=== PATIENT | female | born 1955 | race Caucasian/White ===

== ENCOUNTER 2016-11-22 21:04 | Emergency (ER) | payer OTHER ==
[2016-11-22 21:15] VITALS: BP 136/60; PULSE 88; RESP 20; TEMP 98.6
[2016-11-22] MEDS ORDERED: DIPH,PERTUS(ACELL)TETVAC-LF 0.5 ML VIAL IM ONE (21:35)
--- NOTE | 2016-11-22 21:49 | ED ---
Wound/Laceration HPI - General Chief Complaint: Wound/Laceration Stated Complaint: R Hand Lac Time Seen by Provider: 11/22/16 21:24 Source: patient, RN notes reviewed Mode of arrival: ambulatory Limitations: no limitations - History of Present Illness Initial Comments: Patient is a 61-year-old female presents to the emergency room for evaluation of right hand laceration. Patient does have a history of dementia. Patient states that she was reaching under the car to grab one of her cats and is not sure if she got bitten, scratched or injured her hand on the bottom of the car. Patient states that her cat is up-to-date on all of its immunizations. Patient denies any numbness or tingling in her fingers. Patient denies taking blood thinners. Patient is not up-to-date on her tetanus vaccine. Patient denies any other injuries during incident. Patient's is present with patient and states he did not witness the incident happen. - Related Data Previous Rx's Medication Instructions Recorded Amoxicillin/Potassium Clav 1 each PO Q12HR #20 tab 11/22/16 [Augmentin 875-125 Tablet] Allergies Allergy/AdvReac Type Severity Reaction Status Date / Time meperidine [From Demerol] AdvReac Nausea & Verified 11/22/16 21:15 Vomiting Review of Systems ROS Statement: Those systems with pertinent positive or pertinent negative responses have been documented in the HPI. ROS Other: All systems not noted in ROS Statement are negative. Past Medical History Additional Past Medical History / Comment(s): alzheimer's, multiple sclerosis, History of Any Multi-Drug Resistant Organisms: None Reported Past Surgical History: No Surgical Hx Reported Past Psychological History: No Psychological Hx Reported Smoking Status: Never smoker Past Alcohol Use History: Occasional Past Drug Use History: None Reported General Exam - General Exam Comments Initial Comments: sitting in exam room, no acute distress. Limitations: no limitations General appearance: alert, in no apparent distress Head exam: Present: atraumatic, normocephalic, normal inspection Eye exam: Present: normal appearance ENT exam: Present: normal exam Neck exam: Present: normal inspection Respiratory exam: Absent: respiratory distress Right Hand Wrist exam: Present: full ROM, tenderness, laceration (2cm laceration over the dorsal hand, small puncture wound over the dorsal hand on the first metacarpal area). Absent: normal inspection Neuro motor exam: Present: wrist extension intact, thumb opposition intact, thumb IP flexion intact, thumb adduction intact, fingers 2-5 abduction intact Vascular: Present: normal capillary refill (capillary refill less than 2 seconds ), radial pulse (2+), ulnar pulse (2+) Back exam: Present: normal inspection Neurological exam: Present: alert, oriented X3, CN II-XII intact Psychiatric exam: Present: normal affect, normal mood Skin exam: Present: warm, dry. Absent: rash Course Vital Signs 11/22/16 21:09 Temperature 98.6 F Pulse Rate 88 Respiratory 20 Rate Blood Pressure 136/60 O2 Sat by Pulse 96 Oximetry Procedures - Laceration Laceration #1 Consent Obtained: verbal consent Indication: laceration Site: hand (right dorsal hand) Size (cm): 2 Description: linear Depth: simple, single layer Anesthetic Used: lidocaine 1% Anesthesia Technique: local infiltration Amount (mls): 2 Pre-repair: wound explored, irrigated extensively Type of Sutures: nylon Size of Sutures: 6-0 Number of Sutures: 3 Technique: simple, interrupted Patient Tolerated Procedure: well, no complications Medical Decision Making - Medical Decision Making Patient is 61-year-old female presents to the emergency room for evaluation of right hand laceration. Patient does have a history of dementia and is not sure if she was bit by her cat or if she scratched the top of her hand on the bottom of the car while trying to get her cat. Patient's is present with patient and did not witness the incident happen. Will prophylactically treat patient for possible laceration from the cat bite. Cat is up-to-date on all of its immunizations. Laceration was repaired with loosely tied sutures. Patient was updated on her tetanus vaccine. Patient will be placed on Augmentin. Discussed with patient and to watch out for signs of infection in the suture area. Patient's states he understands everything that was discussed with him. Return parameters discussed. Disposition Clinical Impression: Hand laceration Disposition: HOME SELF-CARE Condition: Good Instructions: Animal Bite (ED), Care For Your Stitches (ED), Laceration (ED) Additional Instructions: Taking antibiotic as directed. Take Tylenol or Motrin as needed for pain. Do not soak suture area in water. Clean suture area with a damp cloth. Please return in 7-10 days for suture removal. Please follow up with primary care provider in 1-2 days. If any new symptom arises, symptoms worsen, return to ER as soon as possible. Prescriptions: Amoxicillin/Potassium Clav [Augmentin 875-125 Tablet] 1 each PO Q12HR #20 tab Referrals: Sherly Mcnulty MD [Primary Care Provider] - 1-2 days Time of Disposition: 22:35
[2016-11-22] MEDS ORDERED: AMOXIC-POT CLAV 875-125MG 1 EACH TAB PO STA (22:34)
== END 2016-11-22 22:43 | disposition home or self-care (01) ==
LOC: EC 21:04
DX: S61.411A Laceration without foreign body of right hand, initial encounter (principal); Z23 Encounter for immunization; Z88.5 Allergy status to narcotic agent; X58.XXXA Exposure to other specified factors, initial encounter; Y93.89 Activity, other specified
CPT/HCPCS: 12001; 90471; 90715; 99282

== ENCOUNTER 2016-11-23 18:25 | Emergency (ER) | payer OTHER ==
[2016-11-23 18:46] VITALS: RESP 18
[2016-11-23] MEDS ORDERED: AMPICILLIN-SULBACTAM 3 GM in SODIUM CHLORIDE 0.9% 100 ML IVPB STA (19:03)
--- NOTE | 2016-11-23 19:08 | ED ---
General Adult HPI - General Chief complaint: Skin/Abscess/Foreign Body Stated complaint: INFECTION AT SUTURE SITE RT HAND Time Seen by Provider: 11/23/16 18:54 Source: patient Mode of arrival: ambulatory Limitations: no limitations - History of Present Illness Initial comments: This 61-year-old white female presents with her with a complaint of a cat scratch to her right hand. This apparently happened yesterday. They initially thought it might of been a Bite but it is likely more a Scratch. The patient is demented and cannot give any significant history herself and therefore history is obtained per the . She was scratched in the dorsal aspect of the right hand. She was seen in our emergency department and had several stitches placed and also received Augmentin well here and a prescription for Augmentin. It was worse this morning they followed up with her primary physician and received a injection of Rocephin. They jessica an outline of where the cellulitis/redness and it and now it has expanded past that area. They present for further evaluation in regard to worsening cellulitis and apparent failure of outpatient treatment. It is caused her some mild pain. There hasn't been any fevers. The pain seems worse with any movement. No other complaints or modifying factors. - Related Data Home Medications Medication Instructions Recorded Confirmed Amoxicillin/Potassium Clav 1 tab PO Q12HR 11/23/16 11/23/16 [Augmentin 875-125 Tablet] Citalopram Hydrobromide [CeleXA] 20 mg PO DAILY 11/23/16 11/23/16 Multivitamins, Thera [Multivitamin 1 tab PO DAILY 11/23/16 11/23/16 (formulary)] Previous Rx's Medication Instructions Recorded Sulfamethox-Tmp 800-160Mg [Bactrim 1 tab PO Q12HR #20 tab 11/23/16 DS 800-160 mg] Allergies Allergy/AdvReac Type Severity Reaction Status Date / Time meperidine [From Demerol] AdvReac Nausea & Verified 11/23/16 20:03 Vomiting Review of Systems ROS Statement: Those systems with pertinent positive or pertinent negative responses have been documented in the HPI. ROS Other: All systems not noted in ROS Statement are negative. Past Medical History Additional Past Medical History / Comment(s): alzheimer's, multiple sclerosis, History of Any Multi-Drug Resistant Organisms: None Reported Past Surgical History: No Surgical Hx Reported Past Psychological History: No Psychological Hx Reported Smoking Status: Never smoker Past Alcohol Use History: Occasional Past Drug Use History: None Reported General Exam - General Exam Comments Initial Comments: GENERAL: The patient is well nourished and well hydrated. VITAL SIGNS: Heart rate, blood pressure, respiratory rate reviewed as recorded in nurse's notes. EYES: Pupils are round and reactive. Extraocular movements are intact. No conjunctival / lid redness or swelling. ENT: No external evidence of injury, swelling, or ecchymosis. Airway is patent. Throat is clear. NECK: Nontender. No swelling or evidence of injury. No subcutaneous emphysema. Trachea is midline. No thyroid mass. HEART: Regular rate and rhythm. Good peripheral pulses. LUNGS/CHEST: Breath sounds clear and equal bilaterally. No rales, rhonchi, or wheezes. No ecchymosis, subcutaneous emphysema, or tenderness. ABDOMEN: Abdomen soft without tenderness. No palpable masses or organomegaly. No peritoneal signs. No abdominal wall swelling or ecchymosis. EXTREMITIES: There is a well-healing laceration noted to the dorsal aspect of the right hand. There were several sutures in place. There is no drainage. There is some associated tenderness noted to the dorsal aspect of the right hand. Normal muscle tone and function. No thoracolumbar tenderness. There is excellent range of motion of the hands without any difficulty. Strength is intact. NEUROLOGIC: Sensation is grossly intact. Cranial nerve exam reveals face is symmetrical, tongue is midline, speech is clear. SKIN: There is erythema noted to the dorsal aspect of the right hand which extends into the fingers. PSYCHIATRIC: Patient appears to be severely demented. Limitations: no limitations Course Vital Signs 11/23/16 11/23/16 18:43 20:29 Temperature 98.3 F Pulse Rate 87 77 Respiratory 18 18 Rate Blood Pressure 120/57 132/79 O2 Sat by Pulse 100 100 Oximetry Medical Decision Making - Medical Decision Making The patient was seen and examined. All diagnostics were reviewed. Appears that she does have a cellulitis associated with a cat scratch to her right hand. IV antibiotics are initiated with Unasyn. Laboratory is reviewed. The labs were all essentially within normal limits except for anemia. He has been relates that he thinks that she has a degree of chronic anemia. They were offered admission to the hospital for further IV antibiotics and it is felt as though this would be in her best interest. They refused admission. Therefore, it is felt as though she should have very close follow-up with either her primary doctor or back to the emergency department. Bactrim will be added as well. They understand and agree and she leaves in no distress. - Lab Data Result diagrams: 11/23/16 19:15 11/23/16 19:15 Lab Results 11/23/16 11/23/16 Range/Units 19:15 19:15 WBC 8.7 (3.8-10.6) k/uL RBC 3.40 L (3.80-5.40) m/uL Hgb 9.9 L (11.4-16.0) gm/dL Hct 31.4 L (34.0-46.0) % MCV 92.3 (80.0-100.0) fL MCH 29.2 (25.0-35.0) pg MCHC 31.7 (31.0-37.0) g/dL RDW 15.0 (11.5-15.5) % Plt Count 288 (150-450) k/uL Neutrophils % 66 % Lymphocytes % 19 % Monocytes % 11 % Eosinophils % 1 % Basophils % 0 % Neutrophils # 5.7 (1.3-7.7) k/uL Lymphocytes # 1.7 (1.0-4.8) k/uL Monocytes # 0.9 (0-1.0) k/uL Eosinophils # 0.1 (0-0.7) k/uL Basophils # 0.0 (0-0.2) k/uL Sodium 137 (137-145) mmol/L Potassium 4.9 (3.5-5.1) mmol/L Chloride 103 (98-107) mmol/L Carbon Dioxide 25 (22-30) mmol/L Anion Gap 9 mmol/L BUN 14 (7-17) mg/dL Creatinine 0.69 (0.52-1.04) mg/dL Est GFR (MDRD) Af Amer >60 (>60 ml/min/1.73 sqM) Est GFR (MDRD) Non-Af >60 (>60 ml/min/1.73 sqM) Glucose 96 (74-99) mg/dL Calcium 9.0 (8.4-10.2) mg/dL Disposition Clinical Impression: Hand laceration, Cellulitis of hand, Failure of outpatient treatment, Cat scratch, Dementia, Anemia Disposition: HOME SELF-CARE Condition: Good Instructions: Cellulitis (ED), Wound Infection (ED), Care For Your Stitches (ED ) Prescriptions: Sulfamethox-Tmp 800-160Mg [Bactrim DS 800-160 mg] 1 tab PO Q12HR #20 tab Referrals: Sherly Mcnulty MD [Primary Care Provider] - 1-2 days Time of Disposition: 20:42
[2016-11-23 19:38] LABS: Basophils % (A) 0 %; CH 29.3; Eosinophils # (A) 0.1 k/uL (0-0.7); Eosinophils % (A) 1 %; HCT 31.4 % (34.0-46.0); HGB 9.9 gm/dL (11.4-16.0); Luc # (Auto) 0.26; Luc % (Auto) 3; Lymphocytes # (A) 1.7 k/uL (1.0-4.8); Lymphocytes % (A) 19 %; MCH 29.2 pg (25.0-35.0); MCHC 31.7 g/dL (31.0-37.0); MCV 92.3 fL (80.0-100.0); Mean Platelet Volume 7.2; Monocytes # (A) 0.9 k/uL (0-1.0); Monocytes % (A) 11 %; Neutrophils # (A) 5.7 k/uL (1.3-7.7); Neutrophils % (A) 66 %; WBC 8.7 k/uL (3.8-10.6); WBC (Perox) 8.82
[2016-11-23 19:50] LABS: Anion Gap 9 mmol/L; Blood Urea Nitrogen 14 mg/dL (7-17); Carbon Dioxide 25 mmol/L (22-30); Chloride 103 mmol/L (98-107); Glucose 96 mg/dL (74-99); Non-African American GFR(MDRD) >60 (>60 ml/min/1.73 sqM); Potassium 4.9 mmol/L (3.5-5.1); Sodium 137 mmol/L (137-145)
[2016-11-23 20:34] VITALS: BP 132/79; PULSE 77
[2016-11-23 20:56] VITALS: TEMP 99
== END 2016-11-23 20:56 | disposition home or self-care (01) ==
LOC: EC 18:25
DX: L03.113 Cellulitis of right upper limb (principal); S61.411D Laceration without foreign body of right hand, subsequent encounter; F03.90 Unspecified dementia, unspecified severity, without behavioral disturbance, psychotic disturbance, mood disturbance, and anxiety; D64.9 Anemia, unspecified; Z79.899 Other long term (current) drug therapy; Z88.5 Allergy status to narcotic agent; W55.03XA Scratched by cat, initial encounter
CPT/HCPCS: 99283; 96365; 36415; 80048; 85025; 87040; J0295

== ENCOUNTER 2016-12-20 13:51 | Emergency (ER) | payer OTHER ==
[2016-12-20 13:59] VITALS: BP 117/53; PULSE 79; RESP 17; TEMP 98.2
--- NOTE | 2016-12-20 14:13 | ED ---
General Adult HPI - General Chief complaint: Extremity Injury, Lower Stated complaint: Toe Pain Time Seen by Provider: 12/20/16 14:03 Source: patient, RN notes reviewed Mode of arrival: ambulatory Limitations: no limitations - History of Present Illness Initial comments: Patient 61-year-old female who presents emergency room today with a chief complaint of left great toe pain. Does admit that cut the nails few days ago and thinks that maybe O2 short causing possible ingrown toenail. States concerned about the redness and possible infection. Denies any other complaint associated symptoms. Patient denies any recent fever, chills, shortness of breath, chest pain, back pain, abdominal pain, nausea or vomiting, numbness or tingling, dysuria or hematuria, constipation or diarrhea, headaches or visual changes, or any other complaints. - Related Data Home Medications Medication Instructions Recorded Confirmed Amoxicillin/Potassium Clav 1 tab PO Q12HR 11/23/16 11/23/16 [Augmentin 875-125 Tablet] Citalopram Hydrobromide [CeleXA] 20 mg PO DAILY 11/23/16 11/23/16 Multivitamins, Thera [Multivitamin 1 tab PO DAILY 11/23/16 11/23/16 (formulary)] Previous Rx's Medication Instructions Recorded Sulfamethox-Tmp 800-160Mg [Bactrim 1 tab PO Q12HR #20 tab 11/23/16 DS 800-160 mg] Cephalexin [Keflex] 500 mg PO Q12HR 7 Days 12/20/16 Allergies Allergy/AdvReac Type Severity Reaction Status Date / Time meperidine [From Demerol] AdvReac Nausea & Verified 11/23/16 20:03 Vomiting Review of Systems ROS Statement: Those systems with pertinent positive or pertinent negative responses have been documented in the HPI. ROS Other: All systems not noted in ROS Statement are negative. Past Medical History Additional Past Medical History / Comment(s): alzheimer's, multiple sclerosis, History of Any Multi-Drug Resistant Organisms: None Reported Past Surgical History: No Surgical Hx Reported Past Psychological History: No Psychological Hx Reported Smoking Status: Never smoker Past Alcohol Use History: Occasional Past Drug Use History: None Reported General Exam - General Exam Comments Initial Comments: General: The patient is awake and alert, in no distress, and does not appear acutely ill. Neck: The neck is supple, there is no tenderness or JVD. Cardiovascular: There is a regular rate and rhythm. No murmur, rub or gallop is appreciated. Respiratory: Lungs are clear to auscultation, respirations are non-labored, breath sounds are equal. No wheezes, stridor, rales, or rhonchi. Musculoskeletal: Full range of motion. Sensation intact. Pulses equal bilaterally 2+. Strength 5/5. Neurological: A&O x 3. CN II-XII intact, There are no obvious motor or sensory deficits. Coordination appears grossly intact. Speech is normal. Skin: Mild redness to the lateral aspect of the left great toe. No JVD streaking. No fluctuance. Psychiatric: Normal mood and affect. Limitations: no limitations Course Vital Signs 12/20/16 13:56 Temperature 98.2 F Pulse Rate 79 Respiratory 17 Rate Blood Pressure 117/53 O2 Sat by Pulse 98 Oximetry Medical Decision Making - Medical Decision Making Patient advised warm soaks use topical antibiotics if the area soft. Advised to use oral antibiotic for any infection. Advised return if symptoms increase or worsen. Disposition Clinical Impression: Ingrown left big toenail Disposition: HOME SELF-CARE Condition: Good Instructions: Ingrown Nail (ED) Additional Instructions: Please use warm soaks and topical antibiotic as discussed. Please antibiotic as prescribed. Please follow-up with family doctor in the next 3-5 days of symptoms have not improved. Please return to emergency room if the symptoms increase or worsen or for any other concerns. Prescriptions: Cephalexin [Keflex] 500 mg PO Q12HR 7 Days Referrals: Sherly Mcnulty MD [Primary Care Provider] - 1-2 days Time of Disposition: 14:12
== END 2016-12-20 14:23 | disposition home or self-care (01) ==
LOC: EC 13:51
DX: L60.0 Ingrowing nail (principal); Z79.899 Other long term (current) drug therapy; Z88.5 Allergy status to narcotic agent
CPT/HCPCS: 99283

== ENCOUNTER 2017-07-03 02:27 | Emergency (ER) | payer SELFPAY ==
[2017-07-03 03:27] LABS: Appearance,Urine Clear (Clear); Bilirubin,Urine Negative (Negative); Blood,Urine Negative (Negative); Color,Urine Light Yellow; Glucose,Urine (UA) Negative (Negative); Ketones,Urine Negative (Negative); Leukocyte Esterase,Urine Negative (Negative); Nitrite,Urine Negative (Negative); PH, Urine 5.5 (5.0-8.0); Protein,Urine Negative (Negative); Specific Gravity,Urine 1.005 (1.001-1.035); Urobilinogen,Urine <2.0 mg/dL (<2.0)
[2017-07-03 03:35] LABS: Anisocytosis Slight; Basophils % (A) 0 %; Eosinophils # (A) 0.1 k/uL (0-0.7); Eosinophils % (A) 1 %; HCT 25.4 % (34.0-46.0); HGB 7.8 gm/dL (11.4-16.0); Hypochromasia Marked; Lymphocytes # (A) 1.9 k/uL (1.0-4.8); Lymphocytes % (A) 31 %; MCH 25.4 pg (25.0-35.0); MCHC 30.7 g/dL (31.0-37.0); MCV 82.8 fL (80.0-100.0); Mean Platelet Volume 7.9; Monocytes # (A) 0.7 k/uL (0-1.0); Monocytes % (A) 11 %; Neutrophils # (A) 3.3 k/uL (1.3-7.7); Neutrophils % (A) 54 %; Platelet Count 375 k/uL (150-450); RBC 3.06 m/uL (3.80-5.40); RDW 16.3 % (11.5-15.5); WBC 6.1 k/uL (3.8-10.6)
[2017-07-03 03:40] LABS: ALT 43 U/L (9-52); AST 35 U/L (14-36); Albumin 3.3 g/dL (3.5-5.0); Alkaline Phosphatase 97 U/L (38-126); Amylase 37 U/L (30-110); Anion Gap 10 mmol/L; Blood Urea Nitrogen 8 mg/dL (7-17); Calcium 8.5 mg/dL (8.4-10.2); Carbon Dioxide 23 mmol/L (22-30); Chloride 107 mmol/L (98-107); Glucose 103 mg/dL (74-99); Lipase 55 U/L (23-300); Potassium 3.6 mmol/L (3.5-5.1); Sodium 140 mmol/L (137-145); Total Bilirubin 0.2 mg/dL (0.2-1.3)
--- NOTE | 2017-07-03 03:47 | XR ---
EXAM: XR Abdomen, 1 View CLINICAL HISTORY: Reason: abdominal pain TECHNIQUE: Frontal supine view of the abdomen/pelvis. COMPARISON: No relevant prior studies available. FINDINGS: Gastrointestinal tract: Unremarkable. No dilation. Bones/joints: Unremarkable. IMPRESSION: Normal abdominal x-ray.
[2017-07-03] MEDS ORDERED: RX INFO: IV CONTRAST WAS GIVEN 1 EACH MISC MISCELLANE PRN (04:24)
--- NOTE | 2017-07-03 05:07 | CT ---
EXAM: CT Abdomen and Pelvis With Intravenous Contrast CLINICAL HISTORY: Reason: Pain TECHNIQUE: Axial computed tomography images of the abdomen and pelvis with intravenous contrast. DLP is 351.30 mGy-cm. This CT exam was performed using one or more of the following dose reduction techniques: automated exposure control, adjustment of the mA and/or kV according to patient size, and/or use of iterative reconstruction technique. COMPARISON: No relevant prior studies available. FINDINGS: Lower thorax: No acute findings. ABDOMEN: Liver: Unremarkable. No mass. Gallbladder and bile ducts: Unremarkable. No calcified stones. No ductal dilation. Pancreas: Unremarkable. No mass. No ductal dilation. Spleen: Unremarkable. No splenomegaly. Adrenals: Unremarkable. No mass. Kidneys and ureters: Unremarkable. No solid mass. No hydronephrosis. Stomach and bowel: Unremarkable. No obstruction. No mucosal thickening. Appendix: No findings to suggest acute appendicitis. PELVIS: Bladder: Unremarkable. No mass. Reproductive: Unremarkable as visualized. ABDOMEN and PELVIS: Intraperitoneal space: Unremarkable. No free air. No significant fluid collection. Bones/joints: No acute fracture. No dislocation. Soft tissues: Unremarkable. Vasculature: Unremarkable. No abdominal aortic aneurysm. Lymph nodes: Unremarkable. No enlarged lymph nodes. IMPRESSION: Normal abdomen and pelvis CT.
[2017-07-03] MEDS ORDERED: MAG HYDROX/AL HYDROX/SIMETH 30 ML CUP PO STA (05:26)
--- NOTE | 2017-07-03 05:28 | ED ---
Abdominal Pain HPI - General Chief Complaint: Abdominal Pain Stated Complaint: ABD PAIN Time Seen by Provider: 07/03/17 03:00 Source: patient, family Mode of arrival: ambulatory Limitations: no limitations - History of Present Illness Initial Comments: 62-year-old female patient presents to the emergency department today with for evaluation of generalized abdominal pain. Patient does have a history of dementia and is unable to provide any significant history. is present and supplies majority of history. He states that patient began complaining of abdominal pain a couple hours after eating dinner. He denies any vomiting complaints of nausea, diarrhea, or constipation. States she's been having normal bowel movements. He denies any hematochezia or melena. States that she is a vegetarian and did have chili for dinner that contained a lot of beans, he believes her pain may be related to excess gas. They deny any fever or chills recently. Denies any history of abdominal surgeries or other intra-abdominal processes. She denies any hematuria, dysuria, urinary frequency , urinary urgency. Patient denies any recent rash, shortness breath, chest pain , back pain, numbness, tingling, dizziness, weakness, hematuria, dysuria, urinary urgency, urinary frequency, headache, visual changes, or any other complaints. - Related Data Home Medications Medication Instructions Recorded Confirmed Citalopram Hydrobromide [CeleXA] 20 mg PO DAILY 11/23/16 07/03/17 Multivitamins, Thera [Multivitamin 1 tab PO DAILY 11/23/16 07/03/17 (formulary)] Donepezil HCl [Aricept ODT] 30 mg PO DAILY 12/20/16 07/03/17 Previous Rx's Medication Instructions Recorded Ferrous Sulfate [Feosol] 325 mg PO DAILY #30 tab 07/03/17 Allergies Allergy/AdvReac Type Severity Reaction Status Date / Time meperidine [From Demerol] AdvReac Nausea & Verified 07/03/17 02:42 Vomiting Review of Systems ROS Statement: Those systems with pertinent positive or pertinent negative responses have been documented in the HPI. ROS Other: All systems not noted in ROS Statement are negative. Past Medical History Additional Past Medical History / Comment(s): alzheimer's, multiple sclerosis, History of Any Multi-Drug Resistant Organisms: None Reported Past Surgical History: No Surgical Hx Reported Past Psychological History: No Psychological Hx Reported Smoking Status: Never smoker Past Alcohol Use History: Occasional Past Drug Use History: None Reported General Exam Limitations: no limitations General appearance: alert, in no apparent distress, other (This is a well- developed, well-nourished adult female patient in no acute distress. Vital signs upon presentation are temperature 98.8F, pulse 85, respirations 16, blood pressure 119/56, pulse oximetry 97% on room air.) Eye exam: Present: normal appearance, PERRL, EOMI. Absent: scleral icterus, conjunctival injection, periorbital swelling ENT exam: Present: normal exam, normal oropharynx, mucous membranes moist Neck exam: Present: normal inspection. Absent: tenderness, meningismus, lymphadenopathy Respiratory exam: Present: normal lung sounds bilaterally. Absent: respiratory distress, wheezes, rales, rhonchi, stridor Cardiovascular Exam: Present: regular rate, normal rhythm, normal heart sounds. Absent: systolic murmur, diastolic murmur, rubs, gallop, clicks GI/Abdominal exam: Present: soft, tenderness (Left lower quadrant abdominal tenderness), normal bowel sounds. Absent: distended, guarding, rebound, rigid Back exam: Present: normal inspection. Absent: CVA tenderness (R), CVA tenderness (L) Neurological exam: Present: alert, CN II-XII intact. Absent: oriented X3 ( Oriented 1) Psychiatric exam: Present: normal affect, normal mood Skin exam: Present: warm, dry, intact, normal color. Absent: rash Course Vital Signs 07/03/17 07/03/17 02:38 05:57 Temperature 98.8 F 97.8 F Pulse Rate 85 76 Respiratory 16 18 Rate Blood Pressure 119/56 142/62 O2 Sat by Pulse 97 100 Oximetry Medical Decision Making - Medical Decision Making 62-year-old female patient presents to the emergency department today for evaluation of abdominal pain. Physical examination did reveal some left lower quadrant abdominal tenderness. Labs reviewed and did reveal a hemoglobin of 7.8. reports that she has had some low hemoglobins but he is not sure what the numbers have been. They deny any symptoms of fatigue, weakness, or dizziness. Occult blood was negative. We did perform a KUB x-ray which was normal. CT of the abdomen and pelvis was obtained due to her left lower quadrant tenderness this was negative. We will give patient a dose of Mylanta here in the department. She is instructed to follow-up with her primary care physician for further evaluation of both the anemia and the abdominal pain. We will start her on iron. They're instructed to return here immediately for any new, worsening, or concerning symptoms. They verbalize understanding and agree with this plan. - Lab Data Result diagrams: 07/03/17 03:05 07/03/17 03:05 Lab Results 07/03/17 07/03/17 07/03/17 Range/Units 03:05 03:05 03:05 WBC 6.1 (3.8-10.6) k/uL RBC 3.06 L (3.80-5.40) m/uL Hgb 7.8 L (11.4-16.0) gm/dL Hct 25.4 L (34.0-46.0) % MCV 82.8 (80.0-100.0) fL MCH 25.4 (25.0-35.0) pg MCHC 30.7 L (31.0-37.0) g/dL RDW 16.3 H (11.5-15.5) % Plt Count 375 (150-450) k/uL Neutrophils % 54 % Lymphocytes % 31 % Monocytes % 11 % Eosinophils % 1 % Basophils % 0 % Neutrophils # 3.3 (1.3-7.7) k/uL Lymphocytes # 1.9 (1.0-4.8) k/uL Monocytes # 0.7 (0-1.0) k/uL Eosinophils # 0.1 (0-0.7) k/uL Basophils # 0.0 (0-0.2) k/uL Hypochromasia Marked Anisocytosis Slight Sodium 140 (137-145) mmol/L Potassium 3.6 (3.5-5.1) mmol/L Chloride 107 (98-107) mmol/L Carbon Dioxide 23 (22-30) mmol/L Anion Gap 10 mmol/L BUN 8 (7-17) mg/dL Creatinine 0.60 (0.52-1.04) mg/dL Est GFR (MDRD) Af Amer >60 (>60 ml/min/1.73 sqM) Est GFR (MDRD) Non-Af >60 (>60 ml/min/1.73 sqM) Glucose 103 H (74-99) mg/dL Calcium 8.5 (8.4-10.2) mg/dL Total Bilirubin 0.2 (0.2-1.3) mg/dL AST 35 (14-36) U/L ALT 43 (9-52) U/L Alkaline Phosphatase 97 (38-126) U/L Total Protein 6.0 L (6.3-8.2) g/dL Albumin 3.3 L (3.5-5.0) g/dL Amylase 37 (30-110) U/L Lipase 55 (23-300) U/L Urine Color Light Yellow Urine Appearance Clear (Clear) Urine pH 5.5 (5.0-8.0) Ur Specific [place] 1.005 (1.001-1.035) Urine Protein Negative (Negative) Urine Glucose (UA) Negative (Negative) Urine Ketones Negative (Negative) Urine Blood Negative (Negative) Urine Nitrite Negative (Negative) Urine Bilirubin Negative (Negative) Urine Urobilinogen <2.0 (<2.0) mg/dL Ur Leukocyte Esterase Negative (Negative) Stool Occult Blood (Negative) 07/03/17 Range/Units 04:21 WBC (3.8-10.6) k/uL RBC (3.80-5.40) m/uL Hgb (11.4-16.0) gm/dL Hct (34.0-46.0) % MCV (80.0-100.0) fL MCH (25.0-35.0) pg MCHC (31.0-37.0) g/dL RDW (11.5-15.5) % Plt Count (150-450) k/uL Neutrophils % % Lymphocytes % % Monocytes % % Eosinophils % % Basophils % % Neutrophils # (1.3-7.7) k/uL Lymphocytes # (1.0-4.8) k/uL Monocytes # (0-1.0) k/uL Eosinophils # (0-0.7) k/uL Basophils # (0-0.2) k/uL Hypochromasia Anisocytosis Sodium (137-145) mmol/L Potassium (3.5-5.1) mmol/L Chloride (98-107) mmol/L Carbon Dioxide (22-30) mmol/L Anion Gap mmol/L BUN (7-17) mg/dL Creatinine (0.52-1.04) mg/dL Est GFR (MDRD) Af Amer (>60 ml/min/1.73 sqM) Est GFR (MDRD) Non-Af (>60 ml/min/1.73 sqM) Glucose (74-99) mg/dL Calcium (8.4-10.2) mg/dL Total Bilirubin (0.2-1.3) mg/dL AST (14-36) U/L ALT (9-52) U/L Alkaline Phosphatase (38-126) U/L Total Protein (6.3-8.2) g/dL Albumin (3.5-5.0) g/dL Amylase (30-110) U/L Lipase (23-300) U/L Urine Color Urine Appearance (Clear) Urine pH (5.0-8.0) Ur Specific [place] (1.001-1.035) Urine Protein (Negative) Urine Glucose (UA) (Negative) Urine Ketones (Negative) Urine Blood (Negative) Urine Nitrite (Negative) Urine Bilirubin (Negative) Urine Urobilinogen (<2.0) mg/dL Ur Leukocyte Esterase (Negative) Stool Occult Blood Negative (Negative) - Radiology Data Radiology results: report reviewed, image reviewed KUB x-ray of the abdomen did show the GI tract is unremarkable no dilation. Bones and joints are unremarkable. Impression by Dr. Callaway shows normal abdominal x-ray. CT of the abdomen and pelvis was obtained with contrast. Report was reviewed in its entirety. Impression by Dr. Callaway shows normal abdomen and pelvis CT. Disposition Clinical Impression: Abdominal pain, Anemia Disposition: HOME SELF-CARE Condition: Good Instructions: Iron Rich Diet (ED), Abdominal Pain (ED), Anemia (ED) Additional Instructions: Take iron supplement as directed. Follow-up with your primary care physician for recheck of your hemoglobin level. Return here immediately for any new, worsening, or concerning symptoms. Prescriptions: Ferrous Sulfate [Feosol] 325 mg PO DAILY #30 tab Referrals: Sherly Mcnulty MD [Primary Care Provider] - 1-2 days Time of Disposition: 05:28
[2017-07-03 06:00] VITALS: BP 142/62; PULSE 76; RESP 18; TEMP 97.8
== END 2017-07-03 06:00 | disposition home or self-care (01) ==
LOC: EC 02:27
DX: D64.9 Anemia, unspecified (principal); R10.84 Generalized abdominal pain; G30.9 Alzheimer's disease, unspecified; F02.80 Dementia in other diseases classified elsewhere, unspecified severity, without behavioral disturbance, psychotic disturbance, mood disturbance, and anxiety; Z79.899 Other long term (current) drug therapy; Z88.5 Allergy status to narcotic agent
CPT/HCPCS: 36415; 80053; 82150; 83690; 85025; 82272; 81003; 74018; 74177; 99284; Q9967

== ENCOUNTER 2017-09-20 05:45 | Inpatient (IN) | payer OTHER ==
[2017-09-20] MEDS ORDERED: LORazepam 1 MG TAB PO STA (06:29)
--- NOTE | 2017-09-20 06:33 | ED ---
General Adult HPI - General Source: family, RN notes reviewed Mode of arrival: wheelchair Limitations: altered mental status <Raj Nascimento - Last Filed: 09/20/17 06:29> <Christian Loo - Last Filed: 09/20/17 10:15> - General Chief complaint: Altered Mental Status Stated complaint: Confusion Time Seen by Provider: 09/20/17 06:14 - History of Present Illness Initial comments: Patient is a pleasantly demented 62-year-old female presenting to the emergency department for agitation. Patient has difficulty providing any history. Patient is appearing agitated at the . Further history is taken from the who states patient has MS and advanced dementia. He states she has progressed rapidly over the past year. Patient has had previous evaluation including MRI and CT and physician evaluation. He states the past few hours she has been more agitated and striking out at him. (Raj Nascimento) - Related Data Home Medications Medication Instructions Recorded Confirmed Citalopram Hydrobromide [CeleXA] 40 mg PO DAILY 11/23/16 09/20/17 Donepezil [Aricept] 10 mg PO BID 09/20/17 09/20/17 Multivit-Min/FA/Lycopen/Lutein 1 tab PO DAILY 09/20/17 09/20/17 [Centrum Silver Tablet] Allergies Allergy/AdvReac Type Severity Reaction Status Date / Time meperidine [From Demerol] AdvReac Nausea & Verified 09/20/17 08:05 Vomiting Review of Systems Limitations: ROS unobtainable due to patients medical condition <Raj Nascimento - Last Filed: 09/20/17 06:29> ROS Other: All systems not noted in ROS Statement are negative. <Christian Loo - Last Filed: 09/20/17 10:15> ROS Statement: Those systems with pertinent positive or pertinent negative responses have been documented in the HPI. Past Medical History Additional Past Medical History / Comment(s): alzheimer's, multiple sclerosis, History of Any Multi-Drug Resistant Organisms: None Reported Past Surgical History: No Surgical Hx Reported Past Psychological History: No Psychological Hx Reported Smoking Status: Never smoker Past Alcohol Use History: Occasional Past Drug Use History: None Reported <Raj Nascimento - Last Filed: 09/20/17 06:29> General Exam Limitations: altered mental status General appearance: alert, in no apparent distress, other (Limited history. Oriented only to first name. Patient does follow commands.) Head exam: Present: atraumatic Eye exam: Present: normal appearance, PERRL, EOMI ENT exam: Present: normal oropharynx Neck exam: Present: normal inspection. Absent: tenderness Respiratory exam: Present: normal lung sounds bilaterally Cardiovascular Exam: Present: regular rate, normal rhythm GI/Abdominal exam: Present: soft. Absent: tenderness Extremities exam: Present: normal inspection Neurological exam: Present: alert, altered, CN II-XII intact. Absent: motor sensory deficit Expanded Neurological exam: Present: protecting the airway Patient oriented to: Present: person. Absent: place, time Cranial nerves: EOM's Intact: Normal Motor strength exam: RUE: 5, LUE: 5, RLE: 5, LLE: 5 Eye Response: (4) open spontaneously Motor Response: (6) obeys commands Verbal Response: (3) inappropriate words Psychiatric exam: Present: other (Patient is with normal mood and affect when originally approached. Patient does ramble and that is incoherent and becomes anxious with that. When patient sees she becomes agitated.) Skin exam: Present: normal color <Raj Nascimento - Last Filed: 09/20/17 06:29> Course <Raj Nascimento - Last Filed: 09/20/17 06:29> <Christian Loo - Last Filed: 09/20/17 10:15> Vital Signs 09/20/17 09/20/17 09/20/17 05:55 06:28 07:00 Temperature 97.3 F L Pulse Rate 89 77 75 Respiratory 18 16 16 Rate Blood Pressure 144/63 125/61 112/56 O2 Sat by Pulse 98 100 100 Oximetry 09/20/17 08:54 Temperature Pulse Rate 85 Respiratory 16 Rate Blood Pressure 124/60 O2 Sat by Pulse 98 Oximetry - Reevaluation(s) Reevaluation #1: 09/20/17 06:31 is interested in having patient given medication to help her relax. He feels if workup otherwise appears normal he is comfortable taking her back home. (Raj Nascimento) Medical Decision Making <Raj Nascimento - Last Filed: 09/20/17 06:29> - Lab Data Result diagrams: 09/20/17 06:41 09/20/17 06:41 - EKG Data -: EKG Interpreted by Pa EKG shows normal: sinus rhythm [place] [address] QRS duration 76 QT since QTC 394/443 low-voltage criteria for LVH nonspecific ST configuration no definite acute elevations or depressions) - Radiology Data Radiology results: report reviewed (View the imaging shows no definite acute changes.), image reviewed <EzeChristian - Last Filed: 09/20/17 10:15> - Medical Decision Making I did discuss findings with the patient and with her . Patient be admitted for evaluation of non-ST elevation myocardial infarction in addition to her dementia and chronic anemia. (Christian Loo) - Lab Data Lab Results 09/20/17 09/20/17 09/20/17 Range/Units 06:37 06:41 06:41 WBC 6.2 (3.8-10.6) k/uL RBC 3.18 L (3.80-5.40) m/uL Hgb 7.8 L (11.4-16.0) gm/dL Hct 25.1 L (34.0-46.0) % MCV 78.9 L (80.0-100.0) fL MCH 24.6 L (25.0-35.0) pg MCHC 31.2 (31.0-37.0) g/dL RDW 17.0 H (11.5-15.5) % Plt Count 348 (150-450) k/uL Neutrophils % 56 % Lymphocytes % 29 % Monocytes % 9 % Eosinophils % 1 % Basophils % 0 % Neutrophils # 3.5 (1.3-7.7) k/uL Lymphocytes # 1.8 (1.0-4.8) k/uL Monocytes # 0.6 (0-1.0) k/uL Eosinophils # 0.1 (0-0.7) k/uL Basophils # 0.0 (0-0.2) k/uL Hypochromasia Slight Anisocytosis Slight Microcytosis Slight PT (9.0-12.0) sec INR (<1.2) APTT (22.0-30.0) sec Sodium (137-145) mmol/L Potassium (3.5-5.1) mmol/L Chloride (98-107) mmol/L Carbon Dioxide (22-30) mmol/L Anion Gap mmol/L BUN (7-17) mg/dL Creatinine (0.52-1.04) mg/dL Est GFR (CKD-EPI)AfAm (>60 ml/min/1.73 sqM) Est GFR (CKD-EPI)NonAf (>60 ml/min/1.73 sqM) Glucose (74-99) mg/dL POC Glucose (mg/dL) 91 (75-99) mg/dL POC Glu Building Insulation Installer ID Isael Brooks Calcium (8.4-10.2) mg/dL Total Bilirubin (0.2-1.3) mg/dL AST (14-36) U/L ALT (9-52) U/L Alkaline Phosphatase (38-126) U/L Total Creatine Kinase 134 (30-135) U/L CK-MB (CK-2) 2.2 (0.0-2.4) ng/mL CK-MB (CK-2) Rel Index 1.6 Troponin I 0.120 H* (0.000-0.034) ng/mL Total Protein (6.3-8.2) g/dL Albumin (3.5-5.0) g/dL Urine Color Urine Appearance (Clear) Urine pH (5.0-8.0) Ur Specific [place] (1.001-1.035) Urine Protein (Negative) Urine Glucose (UA) (Negative) Urine Ketones (Negative) Urine Blood (Negative) Urine Nitrite (Negative) Urine Bilirubin (Negative) Urine Urobilinogen (<2.0) mg/dL Ur Leukocyte Esterase (Negative) Urine RBC (0-5) /hpf Urine WBC (0-5) /hpf Ur Squamous Epith Cells (0-4) /hpf Amorphous Sediment (None) /hpf Urine Bacteria (None) /hpf Hyaline Casts (0-2) /lpf Urine Mucus (None) /hpf Urine Opiates Screen (NotDetected) Ur Oxycodone Screen (NotDetected) Urine Methadone Screen (NotDetected) Ur Propoxyphene Screen (NotDetected) Ur Barbiturates Screen (NotDetected) U Tricyclic Antidepress (NotDetected) Ur Phencyclidine Scrn (NotDetected) Ur Amphetamines Screen (NotDetected) U Methamphetamines Scrn (NotDetected) U Benzodiazepines Scrn (NotDetected) Urine Cocaine Screen (NotDetected) U Marijuana (THC) Screen (NotDetected) 09/20/17 09/20/17 09/20/17 Range/Units 06:41 06:41 06:58 WBC (3.8-10.6) k/uL RBC (3.80-5.40) m/uL Hgb (11.4-16.0) gm/dL Hct (34.0-46.0) % MCV (80.0-100.0) fL MCH (25.0-35.0) pg MCHC (31.0-37.0) g/dL RDW (11.5-15.5) % Plt Count (150-450) k/uL Neutrophils % % Lymphocytes % % Monocytes % % Eosinophils % % Basophils % % Neutrophils # (1.3-7.7) k/uL Lymphocytes # (1.0-4.8) k/uL Monocytes # (0-1.0) k/uL Eosinophils # (0-0.7) k/uL Basophils # (0-0.2) k/uL Hypochromasia Anisocytosis Microcytosis PT 11.3 (9.0-12.0) sec INR 1.2 H (<1.2) APTT 24.0 (22.0-30.0) sec Sodium 143 (137-145) mmol/L Potassium 3.9 (3.5-5.1) mmol/L Chloride 109 H (98-107) mmol/L Carbon Dioxide 20 L (22-30) mmol/L Anion Gap 14 mmol/L BUN 11 (7-17) mg/dL Creatinine 0.52 (0.52-1.04) mg/dL Est GFR (CKD-EPI)AfAm >90 (>60 ml/min/1.73 sqM) Est GFR (CKD-EPI)NonAf >90 (>60 ml/min/1.73 sqM) Glucose 84 (74-99) mg/dL POC Glucose (mg/dL) (75-99) mg/dL POC Glu Building Insulation Installer ID Calcium 8.3 L (8.4-10.2) mg/dL Total Bilirubin 0.3 (0.2-1.3) mg/dL AST 52 H (14-36) U/L ALT 42 (9-52) U/L Alkaline Phosphatase 135 H (38-126) U/L Total Creatine Kinase (30-135) U/L CK-MB (CK-2) (0.0-2.4) ng/mL CK-MB (CK-2) Rel Index Troponin I (0.000-0.034) ng/mL Total Protein 5.8 L (6.3-8.2) g/dL Albumin 3.1 L (3.5-5.0) g/dL Urine Color Yellow Urine Appearance Cloudy H (Clear) Urine pH 5.5 (5.0-8.0) Ur Specific [place] 1.024 (1.001-1.035) Urine Protein Trace H (Negative) Urine Glucose (UA) Negative (Negative) Urine Ketones Negative (Negative) Urine Blood Negative (Negative) Urine Nitrite Negative (Negative) Urine Bilirubin Negative (Negative) Urine Urobilinogen <2.0 (<2.0) mg/dL Ur Leukocyte Esterase Negative (Negative) Urine RBC 1 (0-5) /hpf Urine WBC 3 (0-5) /hpf Ur Squamous Epith Cells <1 (0-4) /hpf Amorphous Sediment Few H (None) /hpf Urine Bacteria Rare H (None) /hpf Hyaline Casts 3 H (0-2) /lpf Urine Mucus Few H (None) /hpf Urine Opiates Screen Not Detected (NotDetected) Ur Oxycodone Screen Not Detected (NotDetected) Urine Methadone Screen Not Detected (NotDetected) Ur Propoxyphene Screen Not Detected (NotDetected) Ur Barbiturates Screen Not Detected (NotDetected) U Tricyclic Antidepress Not Detected (NotDetected) Ur Phencyclidine Scrn Not Detected (NotDetected) Ur Amphetamines Screen Not Detected (NotDetected) U Methamphetamines Scrn Not Detected (NotDetected) U Benzodiazepines Scrn Not Detected (NotDetected) Urine Cocaine Screen Not Detected (NotDetected) U Marijuana (THC) Screen Detected H (NotDetected) Disposition <Raj Nascimento - Last Filed: 09/20/17 06:29> <Christian Loo - Last Filed: 09/20/17 10:15> Clinical Impression: Non-ST elevation myocardial infarction (NSTEMI), Chronic anemia, Dementia Disposition: ADMITTED IP TO THIS [facility] Condition: Stable Referrals: Sherly Mcnulty MD [Primary Care Provider] - 1-2 days
[2017-09-20 06:41] LABS: Glucose,Whole Blood 91 mg/dL (75-99)
[2017-09-20 06:51] LABS: Anisocytosis Slight; Basophils % (A) 0 %; Eosinophils # (A) 0.1 k/uL (0-0.7); Eosinophils % (A) 1 %; HCT 25.1 % (34.0-46.0); HGB 7.8 gm/dL (11.4-16.0); Hypochromasia Slight; Lymphocytes # (A) 1.8 k/uL (1.0-4.8); Lymphocytes % (A) 29 %; MCH 24.6 pg (25.0-35.0); MCHC 31.2 g/dL (31.0-37.0); MCV 78.9 fL (80.0-100.0); Mean Platelet Volume 6.8; Microcytosis Slight; Monocytes # (A) 0.6 k/uL (0-1.0); Monocytes % (A) 9 %; Neutrophils # (A) 3.5 k/uL (1.3-7.7); Neutrophils % (A) 56 %; Platelet Count 348 k/uL (150-450); RBC 3.18 m/uL (3.80-5.40); WBC 6.2 k/uL (3.8-10.6)
[2017-09-20 07:03] LABS: ALT 42 U/L (9-52); AST 52 U/L (14-36); Albumin 3.1 g/dL (3.5-5.0); Alkaline Phosphatase 135 U/L (38-126); Anion Gap 14 mmol/L; Blood Urea Nitrogen 11 mg/dL (7-17); Calcium 8.3 mg/dL (8.4-10.2); Carbon Dioxide 20 mmol/L (22-30); Chloride 109 mmol/L (98-107); Glucose 84 mg/dL (74-99); Potassium 3.9 mmol/L (3.5-5.1); Sodium 143 mmol/L (137-145); Total Bilirubin 0.3 mg/dL (0.2-1.3); Total Protein 5.8 g/dL (6.3-8.2)
[2017-09-20 07:05] LABS: INR 1.2 (<1.2); Prothrombin Time 11.3 sec (9.0-12.0)
[2017-09-20 07:18] LABS: Amphetamine Screen,Urine Not Detected (NotDetected); Barbiturate Screen,Urine Not Detected (NotDetected); Benzodiazepines Screen,Urine Not Detected (NotDetected); Cocaine Screen,Urine Not Detected (NotDetected); Methadone Screen, Urine Not Detected (NotDetected); Opiate Screen,Urine Not Detected (NotDetected); Oxycodone Screen, Urine Not Detected (NotDetected); Phencyclidine Screen,Urine Not Detected (NotDetected); Tricyclic Antidepressant,Urine Not Detected (NotDetected); Urn Cannabinoid Scrn Detected (NotDetected)
[2017-09-20 07:31] LABS: Amorphous Sediment,Urine Few /hpf; Appearance,Urine Cloudy (Clear); Bacteria,Urine Rare /hpf; Bilirubin,Urine Negative (Negative); Blood,Urine Negative (Negative); Color,Urine Yellow; Glucose,Urine (UA) Negative (Negative); Hyaline Casts,Urine 3 /lpf (0-2); Ketones,Urine Negative (Negative); Leukocyte Esterase,Urine Negative (Negative); Mucus,Urine Few /hpf; Nitrite,Urine Negative (Negative); PH, Urine 5.5 (5.0-8.0); Protein,Urine Trace (Negative); RBC,Urine 1 /hpf (0-5); Specific Gravity,Urine 1.024 (1.001-1.035); Squamous Epithelial Cell,Urine <1 /hpf (0-4); Urobilinogen,Urine <2.0 mg/dL (<2.0); WBC,Urine 3 /hpf (0-5)
[2017-09-20 07:32] LABS: Creatine Kinase MB 2.2 ng/mL (0.0-2.4)
[2017-09-20 07:38] LABS: Troponin I 0.12 ng/mL (0.000-0.034)
--- NOTE | 2017-09-20 07:50 | CT ---
EXAMINATION TYPE: CT brain wo con DATE OF EXAM: 09/20/2017 HISTORY: Altered mental status CT DLP: 1225 mGycm. Automated Exposure Control for Dose Reduction was Utilized. TECHNIQUE: CT scan of the head is performed without contrast. COMPARISON: None. FINDINGS: There is no acute intracranial hemorrhage or midline shift identified. There is diffuse v entricular and sulcal prominence consistent with diffuse age-related cerebral atrophy. There is low- attenuation in the periventricular white matter consistent with chronic small vessel ischemic change along the right frontal horn. The globes are intact and the visualized sinuses are clear. Vascular calcification distal internal carotid and vertebral arteries bilaterally is present. IMPRESSION: No acute intracranial hemorrhage or midline shift. There is moderate to severe diffuse age-related cerebral atrophy noted quite pronounced for patient's chronologic age.
--- NOTE | 2017-09-20 08:06 | XR ---
EXAMINATION TYPE: XR chest 2V DATE OF EXAM: 09/20/2017 COMPARISON: NONE HISTORY: Altered mental status and weakness. TECHNIQUE: Frontal and lateral views of the chest are obtained. FINDINGS: There is no focal air space opacity, pleural effusion, or pneumothorax seen. The cardiac silhouette size is enlarged. The osseous structures are intact. IMPRESSION: Cardiomegaly without acute pulmonary process.
[2017-09-20] MEDS ORDERED: HEPARIN SOD,PORK IN 0.45% NACL 25,000 UNIT in 0.45% NACL 1 500ML.BAG IV SCH (10:15)
[2017-09-20] MEDS ORDERED: NITROGLYCERIN SL TABS 0.4 MG TAB SUBLINGUAL PRN (10:15)
[2017-09-20] MEDS ORDERED: HEPARIN SODIUM,PORCINE 5,000 UNIT/ML 1 ML VIAL IV ONE (10:15)
[2017-09-20 13:47] LABS: Creatine Kinase MB 2.2 ng/mL (0.0-2.4)
[2017-09-20 13:52] LABS: Troponin I 0.07 ng/mL (0.000-0.034)
[2017-09-20] MEDS: SODIUM CHLORIDE 0.9% 1,000 ML IV SCH ×2 (14:36→20:19)
--- NOTE | 2017-09-20 15:27 | P.CRDCN ---
History of Present Illness Consult date: 09/20/17 Requesting physician: Heena Moffett Reason for Consult (text): Abnormal troponin Chief complaint: Agitation History of present illness: This is a 62-year-old female history was obtained from the who is at bedside. She has history of multiple sclerosis as well as advanced Alzheimer's dementia, her brought her to the hospital because of worsening agitation at home. In the emergency room they jessica a troponin which came back to be abnormal and for this reason a cardiology consultation was requested. Patient did not have or complain of any chest discomfort or difficulty in breathing. EKG on arrival here showed normal sinus rhythm with nonspecific ST-T wave changes. Chest x-ray showed cardiomegaly without any acute pulmonary process. Scan of the brain did not reveal any acute intracranial hemorrhage or midline shift, there is moderate to severe diffuse age-related cerebral atrophy, pronounced for patient's chronological age. 136/ 60, heart rate in the 70s, 100% on room air, temperature 97.7. White blood cell count 6.2, hemoglobin 7.8, platelet count 348. Sodium 143, potassium 3.9, BUN 11, creatinine 0.5. Troponin 0.12, 0.07. Drug screen positive for marijuana use. According to the , patient did see Dr. Ocampo in the office approximately 5 years ago. Past Medical History Past Medical History: Dementia Additional Past Medical History / Comment(s): Advanced alzheimer's dementia, multiple sclerosis in remission past few years, chronic anemia (spouse states pt is vegetarian), UTIs. History of Any Multi-Drug Resistant Organisms: None Reported Past Surgical History: Tubal Ligation Additional Past Surgical History / Comment(s): Vaginal surgery performed in [place], deviated septum surgery, colonoscopy. Past Anesthesia/Blood Transfusion Reactions: No Reported Reaction Smoking Status: Former smoker - Past Family History Father Family Medical History: No Reported History Mother Family Medical History: Congestive Heart Failure (CHF) Additional Family Medical History / Comment(s): Mother at the age of 82 or 83yrs. Medications and Allergies Home Medications Medication Instructions Recorded Confirmed Type Citalopram Hydrobromide [CeleXA] 40 mg PO DAILY 11/23/16 09/20/17 History Donepezil [Aricept] 10 mg PO BID 09/20/17 09/20/17 History Multivit-Min/FA/Lycopen/Lutein 1 tab PO DAILY 09/20/17 09/20/17 History [Centrum Silver Tablet] Allergies Allergy/AdvReac Type Severity Reaction Status Date / Time meperidine [From Demerol] AdvReac Nausea & Verified 09/20/17 08:05 Vomiting Physical Exam Vitals: Vital Signs Temp Pulse Resp BP Pulse Ox 09/20/17 14:35 97.7 F 75 16 137/63 100 09/20/17 12:33 77 19 133/62 98 09/20/17 10:34 73 20 140/66 98 09/20/17 08:54 85 16 124/60 98 09/20/17 07:00 75 16 112/56 100 09/20/17 06:28 77 16 125/61 100 09/20/17 05:55 97.3 F L 89 18 144/63 98 Intake and Output 09/20/17 09/20/17 09/20/17 06:59 14:59 22:59 Other: Weight 54.431 kg PHYSICAL EXAMINATION: HEENT: Head is atraumatic, normocephalic. Pupils equal, round. Neck is supple. There is no elevated jugular venous pressure. HEART EXAMINATION: Heart S1-S2, diastolic murmur heard at the base, II/IV holosystolic murmur heard at the apex. CHEST EXAMINATION: Lungs are clear to auscultation and precussion. No chest wall tenderness is noted on palpation or with deep breathing. ABDOMEN: Soft, nontender. Bowel sounds are heard. No organomegaly noted. EXTREMITIES: 2+ peripheral pulses with no evidence of peripheral edema and no calf tenderness noted. NEUROLOGIC [patient is awake, confused. Results 09/20/17 06:41 09/20/17 06:41 Cardiac Enzymes 09/20/17 09/20/17 09/20/17 Range/Units 06:41 06:41 12:53 AST 52 H (14-36) U/L CK-MB (CK-2) 2.2 2.2 (0.0-2.4) ng/mL Troponin I 0.120 H* 0.070 H* (0.000-0.034) ng/mL Coagulation 09/20/17 Range/Units 06:41 PT 11.3 (9.0-12.0) sec APTT 24.0 (22.0-30.0) sec CBC 09/20/17 Range/Units 06:41 WBC 6.2 (3.8-10.6) k/uL RBC 3.18 L (3.80-5.40) m/uL Hgb 7.8 L (11.4-16.0) gm/dL Hct 25.1 L (34.0-46.0) % Plt Count 348 (150-450) k/uL Comprehensive Metabolic Panel 09/20/17 Range/Units 06:41 Sodium 143 (137-145) mmol/L Potassium 3.9 (3.5-5.1) mmol/L Chloride 109 H (98-107) mmol/L Carbon Dioxide 20 L (22-30) mmol/L BUN 11 (7-17) mg/dL Creatinine 0.52 (0.52-1.04) mg/dL Glucose 84 (74-99) mg/dL Calcium 8.3 L (8.4-10.2) mg/dL AST 52 H (14-36) U/L ALT 42 (9-52) U/L Alkaline Phosphatase 135 H (38-126) U/L Total Protein 5.8 L (6.3-8.2) g/dL Albumin 3.1 L (3.5-5.0) g/dL Current Medications Generic Name Dose Route Start Last Admin Trade Name Freq PRN Reason Stop Dose Admin Aspirin 325 mg 09/21/17 09:00 Aspirin PO DAILY [facility] Citalopram Hydrobromide 40 mg 09/21/17 09:00 Celexa PO DAILY [facility] Donepezil HCl 10 mg 09/20/17 21:00 Aricept PO BID [facility] Heparin Sodium/Sodium Chloride 500 mls @ 13.06 mls/hr 09/20/17 10:15 14:38 25,000 unit/ Sodium Chloride IV 12 units/kg/hr .Q24H [facility] 13.06 mls/hr Protocol Administration 12 UNITS/KG/HR Sodium Chloride 1,000 mls @ 100 mls/hr 09/20/17 10:15 09/20/17 14:36 Saline 0.9% IV 100 mls/hr .Q10H ASHLEY Administration Multivitamins 1 each 09/21/17 12:00 Theragran PO DAILY@1200 [facility] Nitroglycerin 0.4 mg 09/20/17 10:15 Nitrostat SUBLINGUAL Q5M PRN Chest Pain Intake and Output 09/20/17 09/20/17 09/20/17 06:59 14:59 22:59 Other: Weight 54.431 kg 09/20/17 06:41 09/20/17 06:41 EKG Interpretations (text) EKG shows normal sinus rhythm with no acute changes. Assessment and Plan Plan: assessment and plan #1 advanced Alzheimer's dementia and multiple sclerosis with worsening agitation #2 abnormal troponin, EKG shows normal sinus rhythm with no acute changes. Patient did not complain of any chest discomfort or difficulty in breathing. #3 diastolic and systolic murmur audible possible aortic regurg and mitral regurg. Plan We will obtain an echocardiogram with Doppler study as well as third troponin. Patient was initiated on Ecotrin in the emergency room and is currently on IV heparin. We will obtain a third troponin. Troponin abnormality likely secondary to supply and demand mismatch. We'll review the echo further recommendations then will be made. DNP note has been reviewed, I agree with a documented findings and plan of care. Patient was seen and examined.
[2017-09-20] MEDS ORDERED: HALOPERIDOL 1 MG TAB PO PRN (15:47)
--- NOTE | 2017-09-20 16:16 | P.HPIM ---
History of Present Illness 62-year-old pleasant female with history of asthma was dementia which appears to be pretty advanced patient was brought in here because of agitation episodes patient is alert oriented 0 patient was able to say her first name but last name she only remembers her maiden name. Patient was significantly agitated and her was unable to take care of her agitation because of which patient was brought into ER. Patient to urine analysis essentially within normal limits and the chest x-ray did not show any pneumonic process patient denied any fever chills patient does have any nausea vomiting. Denied and doesn 't have any diarrhea. Patient is found to have anemia which is chronic appears to be an deficiency as well as B12 deficiency anemia. Patient apparently is vegetarian. Patient has nonspecific EKG changes along with mild troponin elevation of 0.1 to the second 1. being 0.06 because of which patient is admitted with IV heparin to select to care patient appears to have a grade 4 x 6 systolic murmur and diuretic area possibly divided stenosis ago Ativan is being obtained at this time. Patient on an average will have about 6 episodes of agitation and month. Patient is full code at this time, discussed with the Review of Systems Not a reliable historian unable to obtain. Past Medical History Past Medical History: Dementia Additional Past Medical History / Comment(s): Advanced alzheimer's dementia, multiple sclerosis in remission past few years, chronic anemia (spouse states pt is vegetarian), UTIs. History of Any Multi-Drug Resistant Organisms: None Reported Past Surgical History: Tubal Ligation Additional Past Surgical History / Comment(s): Vaginal surgery performed in [place], deviated septum surgery, colonoscopy. Past Anesthesia/Blood Transfusion Reactions: No Reported Reaction Smoking Status: Former smoker - Past Family History Father Family Medical History: No Reported History Mother Family Medical History: Congestive Heart Failure (CHF) Additional Family Medical History / Comment(s): Mother at the age of 82 or 83yrs. Medications and Allergies Home Medications Medication Instructions Recorded Confirmed Type Citalopram Hydrobromide [CeleXA] 40 mg PO DAILY 11/23/16 09/20/17 History Donepezil [Aricept] 10 mg PO BID 09/20/17 09/20/17 History Multivit-Min/FA/Lycopen/Lutein 1 tab PO DAILY 09/20/17 09/20/17 History [Centrum Silver Tablet] Allergies Allergy/AdvReac Type Severity Reaction Status Date / Time meperidine [From Demerol] AdvReac Nausea & Verified 09/20/17 08:05 Vomiting Physical Exam Vitals: Vital Signs Temp Pulse Resp BP Pulse Ox 09/20/17 14:35 97.7 F 75 16 137/63 100 09/20/17 12:33 77 19 133/62 98 09/20/17 10:34 73 20 140/66 98 09/20/17 08:54 85 16 124/60 98 09/20/17 07:00 75 16 112/56 100 09/20/17 06:28 77 16 125/61 100 09/20/17 05:55 97.3 F L 89 18 144/63 98 Intake and Output 09/20/17 09/20/17 09/20/17 06:59 14:59 22:59 Output Total 0 Balance 0 Output: Urine 0 Stool 0 Other: # Voids 0 # Bowel Movements 0 Weight 54.431 kg PHYSICAL EXAMINATION: GENERAL: The patient is alert and oriented x0, not in any acute distress. Well developed, well nourished. HEENT: Pupils are round and equally reacting to light. EOMI. No scleral icterus. No conjunctival pallor. Normocephalic, atraumatic. No pharyngeal erythema. No thyromegaly. CARDIOVASCULAR: S1 and S2 present. No rubs, or gallops. Systolic murmur I aortic area grade 4/6 PULMONARY: Chest is clear to auscultation, no wheezing or crackles. ABDOMEN: Soft, nontender, nondistended, normoactive bowel sounds. No palpable organomegaly. MUSCULOSKELETAL: No joint swelling or deformity. EXTREMITIES: No cyanosis, clubbing, or pedal edema. NEUROLOGICAL: Gross neurological examination did not reveal any focal deficits. SKIN: No rashes. Results CBC & Chem 7: 09/20/17 06:41 09/20/17 06:41 Labs: Abnormal Lab Results - Last 24 Hours (Table) 09/20/17 09/20/17 09/20/17 Range/Units 06:41 06:41 06:41 RBC 3.18 L (3.80-5.40) m/uL Hgb 7.8 L (11.4-16.0) gm/dL Hct 25.1 L (34.0-46.0) % MCV 78.9 L (80.0-100.0) fL MCH 24.6 L (25.0-35.0) pg RDW 17.0 H (11.5-15.5) % INR (<1.2) Chloride 109 H (98-107) mmol/L Carbon Dioxide 20 L (22-30) mmol/L Calcium 8.3 L (8.4-10.2) mg/dL AST 52 H (14-36) U/L Alkaline Phosphatase 135 H (38-126) U/L Troponin I 0.120 H* (0.000-0.034) ng/mL Total Protein 5.8 L (6.3-8.2) g/dL Albumin 3.1 L (3.5-5.0) g/dL Urine Appearance (Clear) Urine Protein (Negative) Amorphous Sediment (None) /hpf Urine Bacteria (None) /hpf Hyaline Casts (0-2) /lpf Urine Mucus (None) /hpf U Marijuana (THC) Screen (NotDetected) 09/20/17 09/20/17 09/20/17 Range/Units 06:41 06:58 12:53 RBC (3.80-5.40) m/uL Hgb (11.4-16.0) gm/dL Hct (34.0-46.0) % MCV (80.0-100.0) fL MCH (25.0-35.0) pg RDW (11.5-15.5) % INR 1.2 H (<1.2) Chloride (98-107) mmol/L Carbon Dioxide (22-30) mmol/L Calcium (8.4-10.2) mg/dL AST (14-36) U/L Alkaline Phosphatase (38-126) U/L Troponin I 0.070 H* (0.000-0.034) ng/mL Total Protein (6.3-8.2) g/dL Albumin (3.5-5.0) g/dL Urine Appearance Cloudy H (Clear) Urine Protein Trace H (Negative) Amorphous Sediment Few H (None) /hpf Urine Bacteria Rare H (None) /hpf Hyaline Casts 3 H (0-2) /lpf Urine Mucus Few H (None) /hpf U Marijuana (THC) Screen Detected H (NotDetected) Thrombosis Risk Factor Assmnt - Choose All That Apply Any of the Below Risk Factors Present?: Yes Other Risk Factors: Yes Each Risk Factor Represents 2 Points: Age 61-74 years Other congenital or acquired thrombophilia - If yes, enter type in comment: No Thrombosis Risk Factor Assessment Total Risk Factor Score: 2 Thrombosis Risk Factor Assessment Level: Low Risk Assessment and Plan Plan: -Episodes of agitation: Patient has advanced dementia and agitation episodes are secondary to delirium related to dementia patient doesn't have any signs or symptoms of infection at this point of time. Will use Seroquel at nighttime and will prescribe Seroquel to be discharged on home on as-needed basis at nighttime for agitation episodes. -Elevated troponin: not exactly sure about the etiology of elevated troponin cardiology evaluated the patient takes after any an echocardiogram patient does have murmur and diuretic area consistent with aortic stenosis which can cause microinfarction but I believe the management should be conservative. -Anemia chronic patient did not tolerate iron pills well in the past -Advance also was dementia: Continue with Aricept -Depression can you with Celexa -CODE STATUS full code
[2017-09-20 19:41] LABS: Creatine Kinase MB 1.8 ng/mL (0.0-2.4); Troponin I 0.05 ng/mL (0.000-0.034)
[2017-09-20] MEDS: DONEPEZIL 10 MG TAB PO SCH (20:59)
[2017-09-20] MEDS ORDERED: QUEtiapine 25 MG TAB PO SCH (21:00)
[2017-09-20] MEDS ORDERED: HALOPERIDOL LACTATE 5 MG/ML 1 ML VIAL IVP PRN (21:25)
[2017-09-20] MEDS ORDERED: HEPARIN SODIUM,PORCINE 5,000 UNIT/ML 1 ML VIAL IV PRN (22:43)
[2017-09-21 03:30] VITALS: RESP 18
[2017-09-21 04:07] LABS: Anisocytosis Slight; Basophils % (A) 0 %; Eosinophils # (A) 0.1 k/uL (0-0.7); Eosinophils % (A) 2 %; HCT 26.6 % (34.0-46.0); HGB 8.3 gm/dL (11.4-16.0); Hypochromasia Marked; Lymphocytes # (A) 1.9 k/uL (1.0-4.8); Lymphocytes % (A) 40 %; MCH 25.3 pg (25.0-35.0); MCHC 31.1 g/dL (31.0-37.0); MCV 81.3 fL (80.0-100.0); Microcytosis Slight; Monocytes # (A) 0.4 k/uL (0-1.0); Monocytes % (A) 8 %; Neutrophils # (A) 2.3 k/uL (1.3-7.7); Neutrophils % (A) 48 %; Platelet Count 282 k/uL (150-450); RBC 3.27 m/uL (3.80-5.40); RDW 17.5 % (11.5-15.5); WBC 4.8 k/uL (3.8-10.6)
[2017-09-21 04:16] LABS: Anion Gap 11 mmol/L; Blood Urea Nitrogen 7 mg/dL (7-17); Calcium 8.3 mg/dL (8.4-10.2); Carbon Dioxide 22 mmol/L (22-30); Chloride 111 mmol/L (98-107); Cholesterol 130 mg/dL (<200); Glucose 85 mg/dL (74-99); HDL Cholesterol 21 mg/dL (40-60); LDL Cholesterol,Calculated 91 mg/dL (0-99); Potassium 3.6 mmol/L (3.5-5.1); Sodium 144 mmol/L (137-145); Triglycerides 88 mg/dL (<150)
[2017-09-21] MEDS: SODIUM CHLORIDE 0.9% 1,000 ML IV SCH (06:34)
[2017-09-21] MEDS: DONEPEZIL 10 MG TAB PO SCH (08:15)
[2017-09-21 08:31] VITALS: BP 124/52; PULSE 74; TEMP 97
[2017-09-21] MEDS ORDERED: CITALOPRAM HYDROBROMIDE 20 MG TAB PO SCH (09:00)
[2017-09-21] MEDS ORDERED: ASPIRIN 325 MG TAB PO SCH (09:00)
--- NOTE | 2017-09-21 10:15 | P.PN ---
Subjective Progress Note Date: 09/21/17 Principal diagnosis: Non-STEMI This is a pleasant 62-year-old female patient with a past medical history significant for Alzheimer as well as multiple sclerosis was brought to the hospital yesterday by her because of change in mental status/ agitation. We get involved in her care because her troponin was checked and came in to be slightly abnormal. Please note that the patient did not have any symptoms of chest pain or discomfort or difficulty breathing. We decided to treat the patient medically in the absence of any chest pain or discomfort. An echo cardiac valve was performed and we don't have the results yet. She does have a systolic murmur on physical examination. Objective - Vital Signs Vital signs: Vital Signs Temp 97 F L 09/21/17 08:00 Pulse 74 09/21/17 08:00 Resp 18 09/21/17 08:00 BP 124/52 09/21/17 08:00 Pulse Ox 97 09/21/17 08:00 Intake & Output 09/20/17 09/21/17 09/21/17 18:59 06:59 18:59 Intake Total 600.823 0 Output Total 0 800 Balance 0 -199.177 0 Weight 42.5 kg Intake: Intake, IV Titration 600.823 Amount Heparin Sod,Pork in 0.45% 200.823 NaCl 25,000 unit In 0.45 % NaCl 1 500ml.bag @ 12 UNITS/KG/HR 13.06 mls/hr IV .Q24H ASHLEY Rx#: [id number] Sodium Chloride 0.9% 1, 400 000 ml @ 100 mls/hr IV . Q10H [facility]SH[facility] Rx#:[id number] Oral 0 Output: Urine 0 800 Stool 0 0 Other: Voiding Method Bedpan # Voids 0 1 # Bowel Movements 0 - Constitutional General appearance: Present: no acute distress - Respiratory Respiratory: bilateral: CTA - Cardiovascular Rhythm: regular Heart sounds: normal: S1, S2 Abnormal Heart Sounds: Present: systolic murmur - Labs CBC & Chem 7: 09/21/17 03:52 09/21/17 03:52 Labs: Abnormal Lab Results - Last 24 Hours (Table) 09/20/17 09/20/17 09/20/17 Range/Units 12:53 18:37 22:04 RBC (3.80-5.40) m/uL Hgb (11.4-16.0) gm/dL Hct (34.0-46.0) % RDW (11.5-15.5) % APTT 31.0 H (22.0-30.0) sec Chloride (98-107) mmol/L Creatinine (0.52-1.04) mg/dL Calcium (8.4-10.2) mg/dL Troponin I 0.070 H* 0.050 H* (0.000-0.034) ng/mL HDL Cholesterol (40-60) mg/dL 09/21/17 09/21/17 09/21/17 Range/Units 03:52 03:52 03:52 RBC 3.27 L (3.80-5.40) m/uL Hgb 8.3 L (11.4-16.0) gm/dL Hct 26.6 L (34.0-46.0) % RDW 17.5 H (11.5-15.5) % APTT 49.2 H (22.0-30.0) sec Chloride 111 H (98-107) mmol/L Creatinine 0.50 L (0.52-1.04) mg/dL Calcium 8.3 L (8.4-10.2) mg/dL Troponin I (0.000-0.034) ng/mL HDL Cholesterol 21 L (40-60) mg/dL Assessment and Plan Assessment: Assessment #1 change in mental status #2 Alzheimer dementia #3 multiple sclerosis #4 mildly abnormal cardiac enzymes #5 systolic murmur Plan #1 conservative medical approach for this lady who has multiple comorbidities and has no chest pain or discomfort #2 she is on aspirin we will continue that and I would add statin as well #3 follow-up on the echocardiogram.
--- NOTE | 2017-09-21 11:15 | ECHOF ---
Referral Reason:abn trop MEASUREMENTS -------- HEIGHT: 170.2 cm WEIGHT: 54.4 kg BP: 137/63 RVIDd: 2.9 cm (< 3.3) IVSd: 1.1 cm (0.6 - 1.1) LVIDd: 4.2 cm (3.9 - 5.3) LVPWd: 1.0 cm (0.6 - 1.1) IVSs: 1.5 cm LVIDs: 2.5 cm LVPWs: 1.5 cm LA Diam: 3.3 cm (2.7 - 3.8) LAESV Index (A-L): 35.20 ml/m Ao Diam: 2.7 cm (2.0 - 3.7) AV Cusp: 1.4 cm (1.5 - 2.6) MV EXCURSION: 8.178 mm (> 18.000) MV EF SLOPE: 38 mm/s (70 - 150) EPSS: 0.9 cm MV E Adrian: 0.99 m/s MV DecT: 251 ms MV A Adrian: 0.93 m/s MV E/A Ratio: 1.06 AV maxP.01 mmHg AV meanP.22 mmHg AR PHT: 360 ms RAP: 5.00 mmHg RVSP: 30.29 mmHg FINDINGS -------- Sinus rhythm. This was a technically good study. The left ventricular size is normal. There is borderline concentric left ventricular hypertrophy. Overall left ventricular systolic function is normal with, an EF between 55 - 60 %. The right ventricle is normal in size. LA is moderately dilated 34-39 ml/m2 The right atrium is normal in size. There is moderate aortic valve sclerosis. There is moderate aortic regurgitation. There is modera te aortic stenosis present. Peak/mean gradient across the Aortic Valve is 44.01mmHg / 30.22mmHg. The mitral valve leaflets are mildly thickened. Moderate mitral annular calcification present. Mo derate mitral regurgitation is present. Mild tricuspid regurgitation present. Right ventricular systolic pressure is normal at < 35 mmHg. Trace/mild (physiologic) pulmonic regurgitation. The aortic root size is normal. Normal inferior vena cava with normal inspiratory collapse consistent with estimated right atrial pre ssure of 5 mmHg. The inferior vena cava is mildly dilated. There is no pericardial effusion. CONCLUSIONS -------- 1. Sinus rhythm. 2. This was a technically good study. 3. The left ventricular size is normal. 4. There is borderline concentric left ventricular hypertrophy. 5. Overall left ventricular systolic function is normal with, an EF between 55 - 60 %. 6. The right ventricle is normal in size. 7. LA is moderately dilated 34-39 ml/m2 8. The right atrium is normal in size. 9. There is moderate aortic valve sclerosis. 10. There is moderate aortic regurgitation. 11. There is moderate aortic stenosis present. 12. Peak/mean gradient across the Aortic Valve is 44.01mmHg / 30.22mmHg. 13. The mitral valve leaflets are mildly thickened. 14. Moderate mitral annular calcification present. 15. Moderate mitral regurgitation is present. 16. Mild tricuspid regurgitation present. 17. Right ventricular systolic pressure is normal at < 35 mmHg. 18. Trace/mild (physiologic) pulmonic regurgitation. 19. The aortic root size is normal. 20. Normal inferior vena cava with normal inspiratory collapse consistent with estimated right atrial pressure of 5 mmHg. 21. The inferior vena cava is mildly dilated. 22. There is no pericardial effusion. GRAINING PRESS OPERATOR: Sanaz Spangler RDCS
[2017-09-21 11:49] VITALS: BMI 14.6
[2017-09-21] MEDS ORDERED: MULTIVITAMINS, THERA 1 EACH TAB PO SCH (12:00)
--- NOTE | 2017-09-21 12:33 | P.DS ---
Providers Date of admission: 09/20/17 10:16 Attending physician: Heena Moffett Consults: 09/20/17 10:16 Consult Physician Urgent Consulting Provider: Chip Lilly Consult Reason/Comments: Non-ST elevation myocardial infarction, chronic anemia, dementia Do you want consulting provider notified?: Yes [facility] [place] [facility] Course: Patient was brought in for agitation and patient is found to have mildly elevated troponins cardiac evaluated the patient the recommending aspirin and a statin and patient will be discharged on as-needed basis Seroquel 25 mg at bedtime. Echocardiogram is showing moderate diastolic stenosis patient does not have any symptoms at this point of time no further intervention at this point of time. No further intervention is being contemplated for mildly elevated troponins which appeared to be mostly not due to acute myocardial infarction. PHYSICAL EXAMINATION: GENERAL: The patient is alert and oriented x0, not in any acute distress. Well developed, well nourished. HEENT: Pupils are round and equally reacting to light. EOMI. No scleral icterus. No conjunctival pallor. Normocephalic, atraumatic. No pharyngeal erythema. No thyromegaly. CARDIOVASCULAR: S1 and S2 present. No rubs, or gallops. Systolic murmur I aortic area grade 4/6 PULMONARY: Chest is clear to auscultation, no wheezing or crackles. ABDOMEN: Soft, nontender, nondistended, normoactive bowel sounds. No palpable organomegaly. MUSCULOSKELETAL: No joint swelling or deformity. EXTREMITIES: No cyanosis, clubbing, or pedal edema. NEUROLOGICAL: Gross neurological examination did not reveal any focal deficits. SKIN: No rashes. Assessment and Plan Plan: -Episodes of agitation: Patient has advanced dementia and agitation episodes are secondary to delirium related to dementia patient doesn't have any signs or symptoms of infection at this point of time. -Elevated troponin: Etiology is not clear but does not appear to have acute myocardial infarction, may be related to her intravascularly depletion and dehydration -Anemia chronic patient did not tolerate iron pills well in the past -Advance also was dementia: Continue with Aricept -Depression can you with Celexa -CODE STATUS full code Patient Condition at Discharge: Stable Plan - Discharge Summary Discharge Rx Participant: No New Discharge Prescriptions: New QUEtiapine [SEROquel] 25 mg PO HS PRN #30 tab PRN Reason: Agitation No Action Citalopram Hydrobromide [CeleXA] 40 mg PO DAILY Donepezil [Aricept] 10 mg PO BID Multivit-Min/FA/Lycopen/Lutein [Centrum Silver Tablet] 1 tab PO DAILY Discharge Medication List Citalopram Hydrobromide [CeleXA] 40 mg PO DAILY 11/23/16 [History] Donepezil [Aricept] 10 mg PO BID 09/20/17 [History] Multivit-Min/FA/Lycopen/Lutein [Centrum Silver Tablet] 1 tab PO DAILY 09/20/17 [ History] QUEtiapine [SEROquel] 25 mg PO HS PRN #30 tab 09/21/17 [Rx] Follow up Appointment(s)/Referral(s): Chip Lilly MD [STAFF PHYSICIAN] - 10/29/17 4:30 pm (Sunday) Sherly Mcnulty MD [Primary Care Provider] - 3 Days (This doctor unable to see patient, new primary doctor needed.) Discharge Disposition: HOME SELF-CARE
[2017-09-21] MEDS ORDERED: ATORVASTATIN 40 MG TAB PO SCH (21:00)
== END 2017-09-21 13:03 | disposition home or self-care (01) | DRG 57 ==
LOC: EC 05:45 → 6SEL 10:16
PROVIDERS: ADMIT Internal Medicine; ATTEND Internal Medicine
DX: G30.9 Alzheimer's disease, unspecified (principal); F02.81 Dementia in other diseases classified elsewhere, unspecified severity, with behavioral disturbance; F05 Delirium due to known physiological condition; R45.1 Restlessness and agitation; D51.3 Other dietary vitamin B12 deficiency anemia; E86.0 Dehydration; F32.9 Major depressive disorder, single episode, unspecified; G35 Multiple sclerosis; I08.0 Rheumatic disorders of both mitral and aortic valves; J45.909 Unspecified asthma, uncomplicated; Z79.899 Other long term (current) drug therapy; Z82.49 Family history of ischemic heart disease and other diseases of the circulatory system; Z87.891 Personal history of nicotine dependence; Z88.5 Allergy status to narcotic agent; R74.8 Abnormal levels of other serum enzymes; Z87.440 Personal history of urinary (tract) infections
CPT/HCPCS: 36415; 70450; 71046; 80048; 80053; 80061; 80306; 81001; 82272; 82550; 82553; 84484; 85025; 85610; 85730; 93005; 93306; 96374; 99285

== ENCOUNTER 2018-05-25 00:48 | Emergency (ER) | payer MEDICARE ==
[2018-05-25 00:59] VITALS: BP 147/68; PULSE 94; RESP 16; TEMP 98.1
[2018-05-25] MEDS ORDERED: LORazepam 1 MG TAB PO STA (01:39)
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
== END 2018-05-25 01:58 | disposition home or self-care (01) ==
LOC: EC 00:48
DX: G30.9 Alzheimer's disease, unspecified (principal); F02.80 Dementia in other diseases classified elsewhere, unspecified severity, without behavioral disturbance, psychotic disturbance, mood disturbance, and anxiety; F32.9 Major depressive disorder, single episode, unspecified; F41.9 Anxiety disorder, unspecified; Z87.891 Personal history of nicotine dependence; Z79.899 Other long term (current) drug therapy; Z88.5 Allergy status to narcotic agent
CPT/HCPCS: 99283